=== PATIENT | male | born 1940 | race Caucasian/White ===

== ENCOUNTER 2021-11-27 06:38 | Day surgery (SDC) | payer MEDICARE ==
[~2021-11-27] VITALS: Ht 172.7 cm; Wt 100.0 kg
--- NOTE | ~2021-11-27 | OR ---
[facility] [address], [place] [address] Draft DATE OF OPERATION: 11/27/2021 SURGEON: Juan R Rodrigues MD PREOPERATIVE DIAGNOSIS: Septal deformity. POSTOPERATIVE DIAGNOSIS: Septal deformity. PROCEDURE: Septoplasty. ANESTHESIA: General with LMA, VEHICLE FUEL SYSTEMS CONVERTER, Luis Fernando. 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 OPERATIVE PROCEDURE AND FINDINGS: After informed consent, the patient was taken to the operating room, placed in supine position, where general LMA anesthesia was induced. The patient and procedure were verified. The patient was repositioned. The patient received preoperative intravenous Ancef and intranasal oxymetazoline. Headlight speculum exam of the nasal cavity showed a significant septal deformity anteriorly on the right, nearly completely obstructive on the left side and just posterior to the deflection on the right was a small septal perforation, measuring about 5-6 mm. This possibly resulted from the first surgery, but unsure of the exact etiology. In any event, 1% lidocaine with epi was injected on each side of the septal mucosa. Left hemitransfixion incision was made. Submucoperichondrial flap elevated on the left side, stopping posteriorly before the septal perforation and incision was made through septal cartilage to the right side just posterior to the mucosal incision and the submucoperichondrial pocket elevated on the right. All deviated septal bone and cartilage were then removed, taking care to not involve the pre-existing perforation. The septum was medialized. Airway improved in this manner. Small tear was created on the right side, but did not involve the previous septal perforation. The incision was closed with 4-0 interrupted chromic. Packing was placed. Equal amount of Merocel trimmed, one piece each side coated with Neosporin tied PATIENT NAME: LIGIA RAJAN OPERATIVE REPORT DATE OF : 42 REPORT #: [id number] PHYSICIAN: JUAN R RODRIGUES MD PCP: LANNY LALA REPORT IS CONFIDENTIAL AND NOT TO BE RELEASED WITHOUT AUTHORIZATION [facility] [address] [place] [facility] [address] [facility] [place] [place] [address] Draft anteriorly over the pad. The pharynx was suctioned clear of blood secretions. The patient was then awakened, extubated, and transported to the recovery room in good condition. COMPLICATIONS: No complications. ESTIMATED BLOOD LOSS: Minimal. SPECIMENS: No specimen. PACKING,: One piece of Merocel in each nostril. Juan R Rodrigues MD GC/MODL /[id number] Copies: ~ PATIENT NAME: LIGIA RAJAN OPERATIVE REPORT DATE OF : 42 REPORT #: [id number] PHYSICIAN: JUAN R RODRIGUES MD PCP: LANNY LALA REPORT IS CONFIDENTIAL AND NOT TO BE RELEASED WITHOUT AUTHORIZATION
[~2021-11-27 06:38] MED LIST: ASPIR 8181 MG PO; CARDURA2 MG PO; CLOBETASOL EMOL15 GM TOP; GABAPENTIN800 MG PO; HYDROCHLOROTH12.5 M1 PO; HYZAAR 50-12.51 EACH PO; IBUPROFEN800 MG PO; KEFLEX500 MG PO; METFORMIN HCL1000 M1 PO; METOPROLOL SUCC25 MG PO; NORCO 5-325 TA1 EACH PO; NORTRIPTYLINE H25 MG PO; OMEPRAZOLE20 MG PO; OZEMPIC0.25 MG/0. IM; OZEMPIC0.25 MG/0. SUBD; PRESERVISION A1 EAC1 PO; SIMVASTATIN20 MG PO; SYNTHROID112 MCG PO; SYNTHROID25 MCG; TOUJEO MAX300 UNIT/1; VITAMIN B-121000 MC3 PO; VITAMIN D325 MC2 PO
[2021-11-27] MEDS ORDERED: TOUJEO MAX300 UNIT/1 SQ (07:00)
[2021-11-27] MEDS ORDERED: CARDURA2 MG PO (07:01)
[2021-11-27] MEDS ORDERED: COZAAR50 MG PO (07:02)
--- NOTE | 2021-11-27 09:27 | NUR ---
11/27/21 0927 Cydney Crum 0921-PATIENT ARRIVED TO PACU ON 6L MASK NONAROUSABLE ORAL AIRWAY IN PLACE. PACKING TO LEFT NARE NO DRAINAGE SEE. GAUZE PLACED BY ELECTRICIAN ELEVATOR MAINTENANCE. RN HOLDING JAW TO MAINTAIN OPEN AIRWAY. 0925-HOB ELEVATED. PATIENT MAINTAINING OWN AIRWAY. 6L MASK ORAL AIRWAY IN PLACE. NONAROUSABLE.
--- NOTE | 2021-11-27 10:10 | NUR ---
1000: PT ARRIVES TO UNIT VIA STRETCHER FROM PACU, AWAKE AND ORIENTED ON ARRIVAL. HOLDS APPROPRIATE CONVERSATION. VSS, RESP EVEN AND UNLABORED. DRIP PAD C/D/I. SCDS IN PLACE. DENIES PAIN AND NAUSEA AT THIS TIME. JELLO AND ICE WATER PROVIDED. POC DISCUSSED AND PT AGREEABLE. NO NEEDS VOICED, CALL LIGHT WITHIN REACH
--- NOTE | 2021-11-27 11:20 | NUR ---
1100: PT AWAKE AND ORIENTED IN BED. VSS, RESP EVEN AND UNLABORED. DENIES NAUSEA. REPORTS INCREASING PAIN LEVEL 8/10 AND REQUESTS PAIN RX. ADMINISTERED ORDERED, SEE EMAR. DRIP PAD REMAINS C/D/I. SCDS IN PLACE. NO NEEDS VOICED AT THIS TIME. CALL LIGHT WITHIN REACH
--- NOTE | 2021-11-27 11:46 | NUR ---
1130: PT REPORTS IMPROVING PAIN LEVEL, 12/16. DANGLES AT THE BEDSIDE, SHANTI WELL. DENIES DIZZINESS AND SOB. AMBULATES TO BR WITH STANDBY ASSIST FROM THIS RN. STEADY GAIT. SUCCESSFUL FIRST POSTOP VOID, 300ML. BACK TO ROOM 5 TO DRESS FOR DC
--- NOTE | 2021-11-27 12:35 | NUR ---
1220: SL DC'D WITH CATH TIP INTACT AND PRESSURE APPLIED TO SITE, WNL. DC INSTRUCTIONS PROVIDED AND DISCUSSED ORDERED. PT VOICES UNDERSTANDING AND DENIES QUESTIONS AND CONCERNS AT THIS TIME. 1230: WHEELED OFF OF UNIT IN WC BY THIS RN. TRANSFERS INTO VEHICLE INDEPENDENTLY AND APPROPRIATELY. NO PHYSICAL S/S OF DISTRESS AT THIS TIME
== END 2021-11-27 12:25 | disposition home or self-care (01) ==
LOC: DS 06:38 → OPS 06:38 → DS 09:00 → OPS 12:25
PROVIDERS: ATTEND Otolaryngology
PROC: 09SM0ZZ Reposition Nasal Septum, Open Approach (ICD-10-PCS; principal; 2021-11-27 08:30)
DX: J34.2 Deviated nasal septum (principal); I10 Essential (primary) hypertension; E03.9 Hypothyroidism, unspecified; E11.9 Type 2 diabetes mellitus without complications; K21.9 Gastro-esophageal reflux disease without esophagitis; Z79.4 Long term (current) use of insulin
CPT/HCPCS: J0690; J1100; J1885; J2001; J2405; J2704; J3010; J7121